=== PATIENT | male | born 1980 | race Caucasian/White ===

== ENCOUNTER 2020-08-01 19:51 | Inpatient (IN) | payer BC ==
[~2020-08-01] VITALS: Ht 193 cm; Wt 102.9 kg
[2020-08-01] MEDS ORDERED: HYDROmorphone 1 MG/ML, 1ML INJ IV ONE (20:30)
[2020-08-01] MEDS ORDERED: DIAZEPAM 5 MG/ML, 2ML IVPush ONE (20:30)
[2020-08-01] MEDS ORDERED: PLEASE ENTER ALLERGIES MC SCH (20:30)
[2020-08-01] MEDS ORDERED: SODIUM CHLORIDE FLUSH 10ML SYR IVF ONE (20:30)
[2020-08-01] MEDS ORDERED: ONDANSETRON 2MG/ML, 2ML IVPush ONE (20:30)
[2020-08-01] MEDS ORDERED: DIAZEPAM 5 MG/ML, 2ML ONE (20:37)
[2020-08-01] MEDS ORDERED: HYDROmorphone 1 MG/ML, 1ML INJ ONE (20:38)
[2020-08-01] MEDS ORDERED: ONDANSETRON 2MG/ML, 2ML ONE (20:38)
--- NOTE | 2020-08-01 20:59 | NUR ---
PATIENT RESTING IN BED PRONE HAVING 10/10 COMPLAINTS OF LBP AND BLE TINGLING/NUMBNESS WITH L LEG TREMORS. IV ESTABLISHED AND MEDICATIONS ORDERED ADMIN. PATIENT EDUCATED ON ALL MEDS PRIOR TO ADMIN. ICE PACKS FROM HOME APPLIED TO BACK BY SISTER AT BEDSIDE. PATIENT ABLE TO STAND INDEPENDENTLY WITH WALKER. VOIDED 350mL CLEAR YELLOW URINE. DENIES HAVING URINARY RETENTION JUST THAT "I CAN START MY STREAM IT JUST BECOMES WEAKER SOONER THAN BEFORE". CALL [facility] IN [facility]. SAFETY MAINTAINED. WILL CONTINUE TO MONITOR. PATIENT EDUCATED THAT AFTER MEDS ADMIN THAT HE WILL HAVE TO STAY IN BED DUE TO THESE MEDS BEING HIGH FALL RISK MEDS. HE VERBALIZES UNDERSTANDING
[2020-08-01 21:12] LABS: BASOPHILS % (AUTO) 1 % (0-1); EOSINOPHILS % (AUTO) 4 % (1-7); LYMPHOCYTES % (AUTO) 32 % (22-44); MEAN CORPUSCULAR HEMOGLOBIN 30.7 pg (27.5-34.5); MEAN CORPUSCULAR HGB CONC 35.6 g/dL (33.2-36.2); MEAN PLATELET VOLUME 7.4 fL (7.4-10.4); MONOCYTES % (AUTO) 7 % (2-9); NEUTROPHILS % (AUTO) 57 % (42-75); PLATELET COUNT 339 x10^3/uL (130-400); RED BLOOD COUNT 4.54 x10^6/uL (4.38-5.82); RED CELL DISTRIBUTION WIDTH 13.4 % (9.4-14.8)
[2020-08-01 21:13] LABS: MD NO
[2020-08-01 21:15] LABS: ALBUMIN 3.8 g/dL (3.4-5.0); ANION GAP 7 mmol/L (5-15); CALCIUM 8.3 mg/dL (8.5-10.1); CHLORIDE 110 mmol/L (98-107); CREATININE 1.05 mg/dL (0.7-1.3)
--- NOTE | 2020-08-01 21:19 | NUR ---
PATIENT REPORTS PAIN IS 3/10. PATIENT CONTINUES TO COMPLAIN OF LEG NUMBNESS. + PALPABLE PEDAL PULSES IN BILATERAL FEET. CALL CARDOSO IN RE[place]. SISTER STEPPED OUT. BOTH SIDE RAILS RAISED AND PATIENT NOTIFIED REASON PATIENT RECEIVED 2 HIGH FALL RISK MEDS. CALL CARDOSO IN RE[place]. SAFETY MAINTAINED
[2020-08-01] MEDS ORDERED: GABA300C PO (21:24)
[2020-08-01] MEDS ORDERED: SODIUM CHLORIDE FLUSH 10ML SYR IVF PRN (21:30)
[2020-08-01] MEDS ORDERED: IBUP-1223 PO (22:05)
[2020-08-01] MEDS ORDERED: METH750T87 PO (22:05)
[2020-08-01] MEDS ORDERED: HYDR1TAB53 PO (22:05)
[2020-08-01] MEDS ORDERED: BISA-49 PO (22:05)
--- NOTE | 2020-08-01 22:10 | NUR ---
PATIENT RESTING IN BED IN NAD. CALL CARDOSO IN RE[place]. SISTER REMAINS AT BEDSIDE. PATIENT NOTIFIES ME THAT HE HAS BEEN TOLD HE WILL BE GOING TO SURGERY TOMORROW FOR DEBRIDEMENT OF HIS LAMINECTOMY SITE. VS REMAIN STABLE ON RA. WILL CONTINUE TO MONITOR.
[2020-08-01] MEDS ORDERED: HYDROmorphone 2 MG/ML, 1ML ONE (22:41)
--- NOTE | 2020-08-01 22:51 | NUR ---
REPORT GIVEN TO NISHANT RN ON 4NE. PATIENT ALSO COMPLAINING OF PAIN STARTING TO INCREASE SINCE LAST PAIN HUMAN RESOURCES BENEFITS COORDINATOR. DR. BASS HAD ALREADY LEFT AND DR. CHAVEZ FELT COMFORTABLE ORDERING ANOTHER DOSE OF DILAUDID FOR PATIENT. PATIENT RATED PAIN 4-5/10 AT THIS TIME SO I GAVE 1MG DILAUDID IV INSTEAD OF FULL 2MG PER RN JUDGMENT. SIDE RAILS UP. CALL CARDOSO IN RE[place]. SAFETY MAINTAINED
[2020-08-01] MEDS ORDERED: HYDROmorphone 2 MG/ML, 1ML IVPush ONE (23:00)
[2020-08-01 23:08] VITALS: BP 125/74
[2020-08-01] MEDS ORDERED: ENALAPRILAT 1.25 MG/ML, 2ML IVPush PRN (23:30)
[2020-08-01] MEDS ORDERED: TEMAZEPAM 15 MG CAPSULE PO PRN (23:30)
[2020-08-01] MEDS: GABAPENTIN 300 MG CAPSULE PO SCH (23:30)
[2020-08-01] MEDS ORDERED: MELATONIN 5 MG TABLET PO PRN (23:30)
[2020-08-01] MEDS ORDERED: LIDODERM 5% PATCH TD PRN (23:30)
[2020-08-01] MEDS ORDERED: DOCUSATE 100 MG CAPSULE PO PRN (23:30)
[2020-08-01] MEDS ORDERED: ONDANSETRON 2MG/ML, 2ML IVPush PRN (23:30)
[2020-08-01] MEDS ORDERED: BISACODYL 5 MG EC TABLET PO PRN (23:30)
[2020-08-01] MEDS: DIAZEPAM 5 MG TABLET PO PRN (23:51)
[2020-08-02] MEDS: HYDROmorphone 2 MG/ML, 1ML IVPush PRN ×5 (00:18→11:59)
[2020-08-02 01:57] VITALS: BP 99/48
[2020-08-02 02:08] VITALS: BP 99/48
[2020-08-02] MEDS: GABAPENTIN 300 MG CAPSULE PO SCH ×3 (04:13→21:15)
[2020-08-02 06:06] LABS: BASOPHILS % (AUTO) 1 % (0-1); EOSINOPHILS % (AUTO) 6 % (1-7); LYMPHOCYTES % (AUTO) 37 % (22-44); MEAN CORPUSCULAR HGB CONC 34.4 g/dL (33.2-36.2); MEAN PLATELET VOLUME 7.7 fL (7.4-10.4); MONOCYTES % (AUTO) 9 % (2-9); NEUTROPHILS % (AUTO) 48 % (42-75); PLATELET COUNT 318 x10^3/uL (130-400); RED BLOOD COUNT 4.42 x10^6/uL (4.38-5.82); RED CELL DISTRIBUTION WIDTH 13.4 % (9.4-14.8)
[2020-08-02 06:14] LABS: MD NO
[2020-08-02 06:25] VITALS: BP 126/87
[2020-08-02] MEDS: ACETAMINOPHEN 325 MG TABLET PO PRN ×2 (07:51→18:32)
[2020-08-02] MEDS: POLYETHYLENE GLYCOL 17 GM PACKET PO SCH (09:00)
[2020-08-02] MEDS ORDERED: CYCLOBENZAPRINE 10 MG TABLET PO PRN ×2 (09:30→18:00)
[2020-08-02] MEDS ORDERED: CHLORHEXIDINE 15 ML UDC ONE (14:10)
[2020-08-02] MEDS ORDERED: MIDAZOLAM 1 MG/ML, 2ML ONE (15:05)
[2020-08-02] MEDS ORDERED: FENTANYL PF 250 MCG/5ML ONE ×2 (15:06→16:13)
[2020-08-02] MEDS ORDERED: FENTANYL PF 100 MCG/2ML IV PRN (15:30)
[2020-08-02] MEDS ORDERED: ACETAMINOPHEN 325 MG TABLET PO PRN (15:30)
[2020-08-02] MEDS ORDERED: LABETALOL 5MG/ML, 20ML IV PRN (15:30)
[2020-08-02] MEDS ORDERED: OXYcodone 5 MG/5 ML ORAL.SOL UDC PO PRN (15:30)
[2020-08-02] MEDS ORDERED: ONDANSETRON 2MG/ML, 2ML IVPush PRN ×2 (15:30→18:00)
[2020-08-02] MEDS ORDERED: hydrALAzine 20 MG/ML, 1ML IV PRN (15:30)
[2020-08-02] MEDS ORDERED: MEPERIDINE/PF 25MG/0.5ML IVPush PRN (15:30)
[2020-08-02] MEDS ORDERED: PROPOFOL 10 MG/ML, 20ML ONE (16:12)
[2020-08-02] MEDS ORDERED: SUCCINYLCHOLINE 20 MG/ML, 10ML ONE (16:12)
[2020-08-02] MEDS ORDERED: ROCURONIUM 10MG/ML,5ML ONE (16:12)
[2020-08-02] MEDS ORDERED: GLYCOPYRROLATE 0.2MG/1ML, 5ML ONE (16:12)
[2020-08-02] MEDS ORDERED: CEFAZOLIN 1,000 MG ONE (16:12)
[2020-08-02] MEDS ORDERED: NEOSTIGMINE 1 MG/ML, 10ML ONE (16:12)
[2020-08-02] MEDS ORDERED: BUPIVACAINE LIPOSOME/PF 10ML INFIL ONE (16:28)
[2020-08-02] MEDS ORDERED: FENTANYL PF 100 MCG/2ML ONE ×2 (16:52→18:15)
[2020-08-02] MEDS ORDERED: FENTANYL PF 100 MCG/2ML EPIDPUSH ONE (16:58)
[2020-08-02] MEDS ORDERED: BUPIVACAINE/PF 0.25% EPIDPUSH ONE (17:01)
[2020-08-02] MEDS ORDERED: BUPIVACAINE LIPOSOME/PF 20ML INFIL ONE (17:02)
[2020-08-02] MEDS ORDERED: BUPIVACAINE/PF-EPI 0.25% 1:200K INFIL ONE (17:06)
[2020-08-02] MEDS ORDERED: DEXAMETHASONE 4 MG/ML, 1ML ONE ×3 (17:15)
[2020-08-02] MEDS ORDERED: VANCOMYCIN 1,000 MG IM ONE (17:22)
[2020-08-02] MEDS ORDERED: METHOCARBAMOL 750 MG TABLET PO PRN (18:00)
[2020-08-02] MEDS ORDERED: DIPHENHYDRAMINE 50 MG/ML, 1ML IVPush PRN (18:00)
[2020-08-02] MEDS ORDERED: HYDROcodone/APAP 5/325 TABLET PO PRN (18:00)
[2020-08-02] MEDS ORDERED: BISACODYL 10 MG SUPP PR PRN (18:00)
[2020-08-02] MEDS ORDERED: MAGNESIUM HYDROXIDE 8%, 30ML UDC PO PRN (18:00)
[2020-08-02] MEDS ORDERED: morphine SULFATE 10 MG/ML, 1ML IVPush PRN (18:00)
[2020-08-02] MEDS ORDERED: HYDROcodone/APAP 10/325 MG TABLET PO PRN (18:00)
[2020-08-02] MEDS ORDERED: PROMETHAZINE 25 MG/ML, 1ML IM PRN (18:00)
[2020-08-02] MEDS ORDERED: SENNA/DOCUSATE TABLET PO PRN (18:00)
[2020-08-02] MEDS ORDERED: CEFAZOLIN PMX 1GM/50ML 50 ML IVPB SCH (18:00)
[2020-08-02] MEDS ORDERED: PHARMACY MAY ADJ FOR RENAL FX MC PRN (18:00)
[2020-08-02] MEDS ORDERED: OXYcodone 5 MG/5 ML ORAL.SOL UDC ONE (18:15)
[2020-08-02] MEDS ORDERED: ACETAMINOPHEN 650 MG/20.3 ML UDC ONE (18:16)
[2020-08-02] MEDS: HYDROmorphone 1 MG/ML, 1ML INJ IVPush PRN ×2 (18:18→18:53)
[2020-08-02] MEDS ORDERED: HYDROmorphone 1 MG/ML, 1ML INJ ONE (18:21)
[2020-08-02] MEDS ORDERED: CYCLOBENZAPRINE 10 MG TABLET ONE (18:37)
[2020-08-02] MEDS ORDERED: DIAZEPAM 5 MG TABLET ONE (19:12)
[2020-08-02] MEDS: DIAZEPAM 5 MG TABLET PO PRN (19:13)
[2020-08-02 19:41] VITALS: BP 134/83
[2020-08-02] MEDS: SODIUM CHLORIDE FLUSH 10ML SYR IVF SCH (21:00)
[2020-08-02] MEDS: NS + 20MEQ KCL 1,000 ML IV SCH (21:15)
[2020-08-02] MEDS: OXYcodone/APAP 5/325MG TABLET PO PRN (22:26)
[2020-08-03] MEDS: CEFAZOLIN PMX 1GM/50ML 50 ML IVPB SCH ×2 (00:27→08:38)
[2020-08-03] MEDS: DIAZEPAM 5 MG TABLET PO PRN (00:30)
[2020-08-03] MEDS: OXYcodone/APAP 5/325MG TABLET PO PRN ×3 (02:58→12:43)
[2020-08-03 04:02] VITALS: BP 114/64
[2020-08-03 05:06] LABS: BASOPHILS % (AUTO) 0 % (0-1); EOSINOPHILS % (AUTO) 0 % (1-7); LYMPHOCYTES % (AUTO) 7 % (22-44); MEAN CORPUSCULAR HEMOGLOBIN 30.2 pg (27.5-34.5); MEAN CORPUSCULAR HGB CONC 34.4 g/dL (33.2-36.2); MEAN PLATELET VOLUME 7.5 fL (7.4-10.4); MONOCYTES % (AUTO) 2 % (2-9); NEUTROPHILS % (AUTO) 91 % (42-75); PLATELET COUNT 350 x10^3/uL (130-400); RED BLOOD COUNT 4.67 x10^6/uL (4.38-5.82); RED CELL DISTRIBUTION WIDTH 12.9 % (9.4-14.8)
[2020-08-03 05:09] LABS: MD NO
[2020-08-03 05:13] LABS: ALANINE AMINOTRANSFERASE 48 U/L (12-78); ALBUMIN 3.6 g/dL (3.4-5.0); ANION GAP 7 mmol/L (5-15); CALCIUM 8.2 mg/dL (8.5-10.1); CHLORIDE 106 mmol/L (98-107); CREATININE 1.06 mg/dL (0.7-1.3)
[2020-08-03 05:14] LABS: ALKALINE PHOSPHATASE 68 U/L (45-117); BILIRUBIN,TOTAL 0.5 mg/dL (0.2-1.0); TOTAL PROTEIN 7.1 g/dL (6.4-8.2)
[2020-08-03] MEDS ORDERED: ENOXAPARIN 40 MG/0.4 ML SQ SCH (06:00)
[2020-08-03 06:30] VITALS: BP 110/73
[2020-08-03] MEDS: POLYETHYLENE GLYCOL 17 GM PACKET PO SCH (08:38)
[2020-08-03] MEDS: GABAPENTIN 300 MG CAPSULE PO SCH (08:39)
[2020-08-03] MEDS: SODIUM CHLORIDE FLUSH 10ML SYR IVF SCH (08:42)
[2020-08-03 12:26] VITALS: BP 141/84
[2020-08-03] MEDS: NS + 20MEQ KCL 1,000 ML IV SCH (15:00)
== END 2020-08-03 15:49 | disposition home or self-care (01) | DRG 520 ==
LOC: ED 21:12 → EDIP 21:26 → 4NE 23:02 → DCLOUNGE 08-03 15:42
PROVIDERS: ADMIT Internal Medicine; ATTEND Hospitalist
PROC: 00NY0ZZ Release Lumbar Spinal Cord, Open Approach (ICD-10-PCS; principal; 2020-08-03)
PROC: 01NB0ZZ Release Lumbar Nerve, Open Approach (ICD-10-PCS; 2020-08-03)
PROC: 0SB20ZZ Excision of Lumbar Vertebral Disc, Open Approach (ICD-10-PCS; 2020-08-03)
PROC: 0SB40ZZ Excision of Lumbosacral Disc, Open Approach (ICD-10-PCS; 2020-08-03)
PROC: 4A11X4G Monitoring of Peripheral Nervous Electrical Activity, Intraoperative, External Approach (ICD-10-PCS; 2020-08-03)
DX: M51.17 Intervertebral disc disorders with radiculopathy, lumbosacral region (principal); Z20.822 Contact with and (suspected) exposure to COVID-19; G89.29 Other chronic pain; K59.00 Constipation, unspecified; M48.061 Spinal stenosis, lumbar region without neurogenic claudication; Z79.899 Other long term (current) drug therapy; Z82.49 Family history of ischemic heart disease and other diseases of the circulatory system; Z83.3 Family history of diabetes mellitus; Z88.5 Allergy status to narcotic agent
CPT/HCPCS: 36415; 72100; 80048; 80053; 82040; 85025; 87635; 95938; 95941; 96374; 96375; 96376; 99285; C9290; G0378; J0690; J1100; J1170; J1650; J2250; J2405; J2704; J2710; J3010; J3360; J3370; J3480; J0330

== ENCOUNTER → 2020-11-04 | Outpatient (CLI) | payer OTHER ==
[~2020-11-04] MED LIST: BISA-49 PO; CYCL10TA2 PO; DOCU100T6 PO; EPLE25TA4 PO; GABA300C PO; HYDR1TAB53 PO; IBUP-1223 PO; LISI-170 PO; METH750T87 PO; PROP10DR2 EACHEYE
== END | disposition home or self-care (01) ==
LOC: STAR 14:05
PROVIDERS: ATTEND Neurological Surgery
DX: Z20.822 Contact with and (suspected) exposure to COVID-19 (principal)
CPT/HCPCS: U0003; U0005

== ENCOUNTER 2020-11-05 07:06 | Inpatient (IN) | payer OTHER ==
[~2020-11-05] VITALS: Ht 191.8 cm; Wt 125.0 kg
[~2020-11-05 07:06] MED LIST changes: +BACITRACIN 50,000 UNIT ONE; +HEPARIN 1,000 UNITS/ML, 30ML ONE
[2020-11-05 07:51] VITALS: BP 162/76
[2020-11-05] MEDS ORDERED: CHLORHEXIDINE 15 ML UDC ONE (08:40)
[2020-11-05] MEDS ORDERED: CHLORHEXIDINE 15 ML UDC PO ONE (08:40)
[2020-11-05] MEDS ORDERED: FENTANYL PF 250 MCG/5ML ONE (08:42)
[2020-11-05] MEDS ORDERED: MIDAZOLAM 1 MG/ML, 2ML ONE (08:42)
[2020-11-05] MEDS ORDERED: PROPOFOL 50 ML ONE ×2 (08:42→10:37)
[2020-11-05] MEDS ORDERED: LACTATED RINGERS 1,000 ML IV SCH (09:00)
[2020-11-05] MEDS ORDERED: LORazepam 2 MG/ML, 1ML IVPush PRN (09:30)
[2020-11-05] MEDS ORDERED: METHOCARBAMOL 1,000 MG in DEXTROSE 5% 100 ML IV PRN (09:30)
[2020-11-05] MEDS ORDERED: PROMETHAZINE 25 MG/ML, 1ML IVPush PRN (09:30)
[2020-11-05] MEDS ORDERED: OXYcodone 5 MG/5 ML ORAL.SOL UDC PO PRN (09:30)
[2020-11-05] MEDS ORDERED: MEPERIDINE/PF 25MG/0.5ML IVPush PRN (09:30)
[2020-11-05] MEDS ORDERED: ACETAMINOPHEN 325 MG TABLET PO PRN (09:30)
[2020-11-05] MEDS ORDERED: LABETALOL 5MG/ML, 20ML IV PRN ×2 (09:30→15:00)
[2020-11-05] MEDS ORDERED: HEPARIN 1,000 UNITS/ML, 30ML IVPB ONE (10:25)
[2020-11-05] MEDS ORDERED: NEOSTIGMINE 1 MG/ML, 10ML ONE (10:39)
[2020-11-05] MEDS ORDERED: PROPOFOL 10 MG/ML, 20ML ONE (10:39)
[2020-11-05] MEDS ORDERED: ONDANSETRON 2MG/ML, 2ML ONE (10:39)
[2020-11-05] MEDS ORDERED: LIDOCAINE-MPF 2% ,5ML ONE ×2 (10:39→13:35)
[2020-11-05] MEDS ORDERED: DEXAMETHASONE 4 MG/ML, 1ML ONE (10:39)
[2020-11-05] MEDS ORDERED: GLYCOPYRROLATE 0.2MG/1ML, 5ML ONE (10:39)
[2020-11-05] MEDS ORDERED: CEFAZOLIN 1,000 MG ONE (10:39)
[2020-11-05] MEDS ORDERED: ROCURONIUM 10MG/ML,5ML ONE (10:39)
[2020-11-05] MEDS ORDERED: HYDROmorphone 1 MG/ML, 1ML INJ ONE ×2 (11:10→11:58)
[2020-11-05] MEDS ORDERED: ACETAMINOPHEN 650 MG/20.3 ML UDC ONE (11:38)
[2020-11-05] MEDS ORDERED: FENTANYL PF 100 MCG/2ML ONE ×2 (11:39→12:20)
[2020-11-05] MEDS ORDERED: OXYcodone 5 MG/5 ML ORAL.SOL UDC ONE (11:39)
[2020-11-05] MEDS ORDERED: PROMETHAZINE 25 MG/ML, 1ML ONE (11:41)
[2020-11-05] MEDS: FENTANYL PF 100 MCG/2ML IV PRN ×3 (11:45→12:24)
[2020-11-05] MEDS: HYDROmorphone 1 MG/ML, 1ML INJ IVPush PRN ×2 (12:01→12:15)
[2020-11-05] MEDS ORDERED: DIPHENHYDRAMINE 50 MG/ML, 1ML ONE (12:29)
[2020-11-05] MEDS: DIPHENHYDRAMINE 50 MG/ML, 1ML IVPush PRN (12:35)
[2020-11-05 14:15] VITALS: BP 135/85
[2020-11-05] MEDS ORDERED: METHOCARBAMOL 750 MG TABLET PO PRN (15:00)
[2020-11-05] MEDS ORDERED: DIPHENHYDRAMINE 50 MG/ML, 1ML IM PRN (15:00)
[2020-11-05] MEDS ORDERED: ONDANSETRON 2MG/ML, 2ML IV PRN (15:00)
[2020-11-05] MEDS ORDERED: ARTIFICIAL TEARS 15 DROP/ML BOTTLE EACHEYE PRN (15:00)
[2020-11-05] MEDS ORDERED: PROMETHAZINE 25 MG/ML, 1ML IM PRN (15:00)
[2020-11-05] MEDS ORDERED: DIPHENHYDRAMINE 25 MG CAPSULE PO PRN (15:00)
[2020-11-05] MEDS: GABAPENTIN 300 MG CAPSULE PO SCH ×2 (16:22→21:11)
[2020-11-05] MEDS: OXYcodone IR 5MG TABLET PO PRN ×2 (16:22→21:11)
[2020-11-05] MEDS: CEFAZOLIN PMX 1GM/50ML 50 ML IVPB SCH (17:47)
[2020-11-05] MEDS ORDERED: CYCLOBENZAPRINE 10 MG TABLET PO PRN (18:00)
[2020-11-05 19:54] VITALS: BP 163/110
[2020-11-05] MEDS: D5%-0.9% NACL+KCL 20MEQ 1,000 ML IV SCH (21:00)
[2020-11-06] VITALS (7 sets, daily range): BP systolic 104–153; BP diastolic 61–92
[2020-11-06] MEDS: CEFAZOLIN PMX 1GM/50ML 50 ML IVPB SCH (02:15)
[2020-11-06] MEDS: OXYcodone IR 5MG TABLET PO PRN ×5 (02:20→15:47)
[2020-11-06] MEDS: ENOXAPARIN 40 MG/0.4 ML SQ SCH (05:27)
[2020-11-06 05:41] LABS: ANION GAP 5 mmol/L (5-15); CALCIUM 8.4 mg/dL (8.5-10.1); CHLORIDE 104 mmol/L (98-107); CREATININE 0.94 mg/dL (0.7-1.3)
[2020-11-06 05:49] LABS: BASOPHILS % (AUTO) 0 % (0-1); EOSINOPHILS % (AUTO) 0 % (1-7); LYMPHOCYTES % (AUTO) 19 % (22-44); MEAN CORPUSCULAR HEMOGLOBIN 29.8 pg (27.5-34.5); MEAN CORPUSCULAR HGB CONC 33.9 g/dL (33.2-36.2); MEAN PLATELET VOLUME 7.3 fL (7.4-10.4); MONOCYTES % (AUTO) 8 % (2-9); NEUTROPHILS % (AUTO) 72 % (42-75); PLATELET COUNT 311 x10^3/uL (130-400); RED BLOOD COUNT 4.75 x10^6/uL (4.38-5.82); RED CELL DISTRIBUTION WIDTH 13.1 % (9.4-14.8)
[2020-11-06] MEDS: D5%-0.9% NACL+KCL 20MEQ 1,000 ML IV SCH ×3 (06:38→21:04)
[2020-11-06] MEDS: GABAPENTIN 300 MG CAPSULE PO SCH ×3 (08:32→20:43)
[2020-11-06] MEDS: LISINOPRIL 20 MG TABLET PO SCH (08:32)
[2020-11-06] MEDS: SENNA/DOCUSATE TABLET PO SCH (08:33)
[2020-11-06] MEDS: EPLERENONE 50 MG TABLET PO SCH (09:37)
[2020-11-06] MEDS: METHOCARBAMOL 750 MG TABLET PO PRN (12:05)
[2020-11-06] MEDS ORDERED: KETOROLAC 30 MG/1 ML IVPush ONE (18:00)
[2020-11-06] MEDS ORDERED: CYCLOBENZAPRINE 10 MG TABLET PO PRN (20:50)
[2020-11-07 01:30] VITALS: BP 112/69
[2020-11-07] MEDS: METHOCARBAMOL 750 MG TABLET PO PRN ×2 (05:05→16:13)
[2020-11-07] MEDS: OXYcodone IR 5MG TABLET PO PRN ×5 (05:05→19:45)
[2020-11-07] MEDS: ENOXAPARIN 40 MG/0.4 ML SQ SCH (05:06)
[2020-11-07 05:40] LABS: BASOPHILS % (AUTO) 0 % (0-1); EOSINOPHILS % (AUTO) 1 % (1-7); LYMPHOCYTES % (AUTO) 27 % (22-44); MEAN CORPUSCULAR HEMOGLOBIN 30.7 pg (27.5-34.5); MEAN CORPUSCULAR HGB CONC 35.2 g/dL (33.2-36.2); MEAN PLATELET VOLUME 7.2 fL (7.4-10.4); MONOCYTES % (AUTO) 9 % (2-9); NEUTROPHILS % (AUTO) 62 % (42-75); PLATELET COUNT 263 x10^3/uL (130-400); RED BLOOD COUNT 4.52 x10^6/uL (4.38-5.82); RED CELL DISTRIBUTION WIDTH 13.1 % (9.4-14.8)
[2020-11-07 05:57] LABS: ANION GAP 4 mmol/L (5-15); CALCIUM 8.1 mg/dL (8.5-10.1); CHLORIDE 104 mmol/L (98-107); CREATININE 0.92 mg/dL (0.7-1.3)
[2020-11-07 08:21] VITALS: BP 125/82
[2020-11-07] MEDS: LISINOPRIL 20 MG TABLET PO SCH (09:40)
[2020-11-07] MEDS: GABAPENTIN 300 MG CAPSULE PO SCH ×3 (09:40→19:45)
[2020-11-07] MEDS: EPLERENONE 50 MG TABLET PO SCH (09:40)
[2020-11-07] MEDS: SENNA/DOCUSATE TABLET PO SCH (09:40)
[2020-11-07] MEDS: D5%-0.9% NACL+KCL 20MEQ 1,000 ML IV SCH (13:00)
[2020-11-07 13:35] VITALS: BP 118/64
[2020-11-07 19:13] VITALS: BP 146/85
[2020-11-07] MEDS: CYCLOBENZAPRINE 10 MG TABLET PO PRN (19:45)
[2020-11-07] MEDS: MAGNESIUM HYDROXIDE 8%, 30ML UDC PO PRN (19:45)
[2020-11-08] MEDS: OXYcodone IR 5MG TABLET PO PRN ×6 (00:08→22:44)
[2020-11-08] MEDS: D5%-0.9% NACL+KCL 20MEQ 1,000 ML IV SCH ×3 (00:08→16:02)
[2020-11-08 02:44] VITALS: BP 145/80
[2020-11-08 05:40] LABS: BASOPHILS % (AUTO) 1 % (0-1); EOSINOPHILS % (AUTO) 1 % (1-7); LYMPHOCYTES % (AUTO) 31 % (22-44); MEAN CORPUSCULAR HEMOGLOBIN 30.5 pg (27.5-34.5); MEAN CORPUSCULAR HGB CONC 34.7 g/dL (33.2-36.2); MEAN PLATELET VOLUME 7.1 fL (7.4-10.4); MONOCYTES % (AUTO) 10 % (2-9); NEUTROPHILS % (AUTO) 58 % (42-75); PLATELET COUNT 330 x10^3/uL (130-400); RED BLOOD COUNT 4.77 x10^6/uL (4.38-5.82)
[2020-11-08 05:47] LABS: CHLORIDE 104 mmol/L (98-107)
[2020-11-08 05:48] LABS: ANION GAP 4 mmol/L (5-15); CALCIUM 8.5 mg/dL (8.5-10.1)
[2020-11-08 05:50] LABS: CREATININE 1.06 mg/dL (0.7-1.3)
[2020-11-08] MEDS ORDERED: BUPIVACAINE/PF 0.5% ONE (06:16)
[2020-11-08] MEDS ORDERED: BACITRACIN 50,000 UNIT ONE (06:16)
[2020-11-08] MEDS: METHOCARBAMOL 750 MG TABLET PO PRN (06:46)
[2020-11-08 07:19] VITALS: BP 137/79
[2020-11-08] MEDS ORDERED: FENTANYL PF 250 MCG/5ML ONE (08:06)
[2020-11-08] MEDS ORDERED: MIDAZOLAM 1 MG/ML, 2ML ONE (08:06)
[2020-11-08] MEDS ORDERED: ROCURONIUM 10MG/ML,5ML ONE (08:08)
[2020-11-08] MEDS ORDERED: PROPOFOL 100 ML ONE (08:08)
[2020-11-08] MEDS ORDERED: NEOSTIGMINE 1 MG/ML, 10ML ONE (08:08)
[2020-11-08] MEDS ORDERED: GLYCOPYRROLATE 0.2MG/1ML, 5ML ONE (08:08)
[2020-11-08] MEDS ORDERED: CHLORHEXIDINE 15 ML UDC ONE (08:08)
[2020-11-08] MEDS ORDERED: PROPOFOL 10 MG/ML, 20ML ONE (08:08)
[2020-11-08] MEDS ORDERED: CEFAZOLIN 1,000 MG ONE (08:08)
[2020-11-08] MEDS ORDERED: CHLORHEXIDINE 15 ML UDC PO ONE (08:30)
[2020-11-08] MEDS: GABAPENTIN 300 MG CAPSULE PO SCH ×3 (09:00→22:42)
[2020-11-08] MEDS ORDERED: LABETALOL 5MG/ML, 20ML IV PRN (09:30)
[2020-11-08] MEDS ORDERED: METHOCARBAMOL 1,000 MG in DEXTROSE 5% 100 ML IV PRN ×2 (09:30→10:30)
[2020-11-08] MEDS ORDERED: ONDANSETRON 2MG/ML, 2ML IVPush PRN (09:30)
[2020-11-08] MEDS ORDERED: ACETAMINOPHEN 325 MG TABLET PO PRN (09:30)
[2020-11-08] MEDS ORDERED: hydrALAzine 20 MG/ML, 1ML IV PRN (09:30)
[2020-11-08] MEDS ORDERED: MEPERIDINE/PF 25MG/0.5ML IVPush PRN (09:30)
[2020-11-08] MEDS ORDERED: HYDROmorphone 1 MG/ML, 1ML INJ IVPush PRN (09:30)
[2020-11-08] MEDS ORDERED: KETOROLAC 30 MG/1 ML ONE (11:16)
[2020-11-08] MEDS ORDERED: FENTANYL PF 100 MCG/2ML ONE ×2 (11:39→12:21)
[2020-11-08] MEDS: FENTANYL PF 100 MCG/2ML IV PRN ×6 (11:41→12:35)
[2020-11-08] MEDS ORDERED: OXYcodone 5 MG/5 ML ORAL.SOL UDC PO PRN (12:00)
[2020-11-08] MEDS ORDERED: CEFAZOLIN 1,000 MG IM SCH (12:00)
[2020-11-08] MEDS ORDERED: DIPHENHYDRAMINE 50 MG/ML, 1ML IVPush PRN (12:00)
[2020-11-08] MEDS ORDERED: OXYcodone 5 MG/5 ML ORAL.SOL UDC ONE (12:01)
[2020-11-08] MEDS ORDERED: DIPHENHYDRAMINE 50 MG/ML, 1ML ONE (12:01)
[2020-11-08] MEDS: DIPHENHYDRAMINE 50 MG/ML, 1ML IVPush PRN (12:04)
[2020-11-08 13:10] VITALS: BP 130/73
[2020-11-08] MEDS ORDERED: DIPHENHYDRAMINE 25 MG CAPSULE PO PRN (13:27)
[2020-11-08] MEDS ORDERED: ONDANSETRON 2MG/ML, 2ML IV PRN (13:30)
[2020-11-08] MEDS ORDERED: PROMETHAZINE 25 MG/ML, 1ML IM PRN (13:30)
[2020-11-08] MEDS ORDERED: POLYETHYLENE GLYCOL 17 GM PACKET PO PRN (14:00)
[2020-11-08] MEDS: CEFAZOLIN PMX 1GM/50ML 50 ML IV SCH (16:02)
[2020-11-08] MEDS: CYCLOBENZAPRINE 10 MG TABLET PO PRN (16:11)
[2020-11-08] MEDS: LISINOPRIL 20 MG TABLET PO SCH (16:11)
[2020-11-08] MEDS: EPLERENONE 50 MG TABLET PO SCH (16:11)
[2020-11-08] MEDS: SENNA/DOCUSATE TABLET PO SCH (16:11)
[2020-11-08 20:00] VITALS: BP 116/72
[2020-11-08] MEDS: FAMOTIDINE 20 MG TABLET PO SCH (22:42)
[2020-11-09] VITALS: BP 125/71
[2020-11-09] MEDS: CEFAZOLIN PMX 1GM/50ML 50 ML IV SCH ×2 (00:28→08:30)
[2020-11-09] MEDS: CYCLOBENZAPRINE 10 MG TABLET PO PRN ×3 (00:28→16:36)
[2020-11-09] MEDS: D5%-0.9% NACL+KCL 20MEQ 1,000 ML IV SCH ×2 (03:05→14:53)
[2020-11-09] MEDS: OXYcodone IR 5MG TABLET PO PRN ×7 (03:07→21:15)
[2020-11-09 04:17] VITALS: BP 116/72
[2020-11-09 06:07] LABS: ANION GAP 3 mmol/L (5-15); BASOPHILS % (AUTO) 1 % (0-1); CALCIUM 7.8 mg/dL (8.5-10.1); CHLORIDE 105 mmol/L (98-107); EOSINOPHILS % (AUTO) 2 % (1-7); LYMPHOCYTES % (AUTO) 22 % (22-44); MEAN CORPUSCULAR HEMOGLOBIN 30.7 pg (27.5-34.5); MEAN PLATELET VOLUME 7.1 fL (7.4-10.4); MONOCYTES % (AUTO) 7 % (2-9); NEUTROPHILS % (AUTO) 68 % (42-75); PLATELET COUNT 281 x10^3/uL (130-400); RED BLOOD COUNT 4.22 x10^6/uL (4.38-5.82); RED CELL DISTRIBUTION WIDTH 13.1 % (9.4-14.8)
[2020-11-09 06:08] LABS: CREATININE 0.84 mg/dL (0.7-1.3)
[2020-11-09 07:45] VITALS: BP 121/75
[2020-11-09] MEDS ORDERED: ENOXAPARIN 40 MG/0.4 ML SQ ONE (09:00)
[2020-11-09] MEDS: POLYETHYLENE GLYCOL 17 GM PACKET PO SCH (09:07)
[2020-11-09] MEDS: EPLERENONE 50 MG TABLET PO SCH (09:08)
[2020-11-09] MEDS: GABAPENTIN 300 MG CAPSULE PO SCH (09:08)
[2020-11-09] MEDS: FAMOTIDINE 20 MG TABLET PO SCH ×2 (09:09→21:12)
[2020-11-09] MEDS: LISINOPRIL 20 MG TABLET PO SCH (09:09)
[2020-11-09] MEDS: SENNA/DOCUSATE TABLET PO SCH (09:09)
[2020-11-09] MEDS: DIAZEPAM 2 MG TABLET PO PRN (09:09)
[2020-11-09] MEDS: HYDROmorphone 2 MG/ML, 1ML IVPush PRN (10:43)
[2020-11-09] MEDS: METHOCARBAMOL 750 MG TABLET PO PRN ×2 (12:06→21:12)
[2020-11-09] MEDS: LIDOCAINE JELLY 2%, 30GM TP PRN ×2 (12:20→18:09)
[2020-11-09 13:10] VITALS: BP 122/74
[2020-11-09] MEDS ORDERED: LIDOCAINE JELLY 2%, 30GM TP SCH (16:00)
[2020-11-09] MEDS: GABAPENTIN 400 MG CAPSULE PO SCH ×2 (16:36→21:11)
[2020-11-09 20:33] VITALS: BP 135/84
[2020-11-10] MEDS: OXYcodone IR 5MG TABLET PO PRN ×3 (00:21→07:39)
[2020-11-10] MEDS: CYCLOBENZAPRINE 10 MG TABLET PO PRN ×2 (00:21→21:54)
[2020-11-10] MEDS: LIDOCAINE JELLY 2%, 30GM TP PRN ×3 (00:21→22:18)
[2020-11-10 01:18] VITALS: BP 122/87
[2020-11-10] MEDS: DIAZEPAM 2 MG TABLET PO PRN (04:05)
[2020-11-10] MEDS: D5%-0.9% NACL+KCL 20MEQ 1,000 ML IV SCH ×2 (04:05→12:19)
[2020-11-10 05:35] LABS: BASOPHILS % (AUTO) 1 % (0-1); EOSINOPHILS % (AUTO) 2 % (1-7); LYMPHOCYTES % (AUTO) 17 % (22-44); MEAN CORPUSCULAR HEMOGLOBIN 30.5 pg (27.5-34.5); MEAN CORPUSCULAR HGB CONC 34.8 g/dL (33.2-36.2); MONOCYTES % (AUTO) 10 % (2-9); NEUTROPHILS % (AUTO) 71 % (42-75); PLATELET COUNT 345 x10^3/uL (130-400); RED BLOOD COUNT 4.55 x10^6/uL (4.38-5.82)
[2020-11-10 05:44] LABS: ANION GAP 5 mmol/L (5-15); CALCIUM 8.9 mg/dL (8.5-10.1); CHLORIDE 100 mmol/L (98-107)
[2020-11-10 05:46] LABS: CREATININE 0.96 mg/dL (0.7-1.3)
[2020-11-10] MEDS ORDERED: BUPIVACAINE 0.25% ONE (06:16)
[2020-11-10] MEDS ORDERED: BACITRACIN 50,000 UNIT ONE (06:16)
[2020-11-10] MEDS ORDERED: EPINEPHRINE 1 MG/ML, 1ML ONE (06:16)
[2020-11-10] MEDS ORDERED: BUPIVACAINE/PF 0.5% ONE (06:16)
[2020-11-10 06:48] VITALS: BP 131/87
[2020-11-10] MEDS ORDERED: KETOROLAC 30 MG/1 ML IV ONE (08:30)
[2020-11-10] MEDS: SENNA/DOCUSATE TABLET PO SCH (08:46)
[2020-11-10] MEDS: EPLERENONE 50 MG TABLET PO SCH (08:46)
[2020-11-10] MEDS: POLYETHYLENE GLYCOL 17 GM PACKET PO SCH (08:46)
[2020-11-10] MEDS: FAMOTIDINE 20 MG TABLET PO SCH ×2 (08:47→21:54)
[2020-11-10] MEDS: LISINOPRIL 20 MG TABLET PO SCH (08:47)
[2020-11-10] MEDS: GABAPENTIN 400 MG CAPSULE PO SCH ×3 (08:47→21:55)
[2020-11-10] MEDS: HYDROmorphone 2 MG/ML, 1ML IVPush PRN ×4 (10:25→21:56)
[2020-11-10 12:26] VITALS: BP 126/82
[2020-11-10] MEDS ORDERED: VANCOMYCIN 1,000 MG ONE (12:53)
[2020-11-10] MEDS ORDERED: CHLORHEXIDINE 15 ML UDC ONE (13:47)
[2020-11-10] MEDS: MAGNESIUM HYDROXIDE 8%, 30ML UDC PO PRN (16:00)
[2020-11-10 20:02] VITALS: BP 112/71
[2020-11-11] MEDS: HYDROmorphone 2 MG/ML, 1ML IVPush PRN ×5 (01:17→13:09)
[2020-11-11 01:24] VITALS: BP 143/86
[2020-11-11 05:22] LABS: BASOPHILS % (AUTO) 1 % (0-1); EOSINOPHILS % (AUTO) 4 % (1-7); LYMPHOCYTES % (AUTO) 21 % (22-44); MEAN CORPUSCULAR HEMOGLOBIN 30.3 pg (27.5-34.5); MEAN CORPUSCULAR HGB CONC 35.1 g/dL (33.2-36.2); MEAN PLATELET VOLUME 6.9 fL (7.4-10.4); MONOCYTES % (AUTO) 12 % (2-9); NEUTROPHILS % (AUTO) 63 % (42-75); PLATELET COUNT 321 x10^3/uL (130-400); RED BLOOD COUNT 4.31 x10^6/uL (4.38-5.82); RED CELL DISTRIBUTION WIDTH 13.1 % (9.4-14.8)
[2020-11-11 05:30] LABS: ANION GAP 5 mmol/L (5-15); CHLORIDE 103 mmol/L (98-107); CREATININE 0.75 mg/dL (0.7-1.3)
[2020-11-11 06:22] VITALS: BP 120/77
[2020-11-11] MEDS: D5%-0.9% NACL+KCL 20MEQ 1,000 ML IV SCH (06:48)
[2020-11-11] MEDS: BISACODYL 10 MG SUPP PR PRN ×2 (07:31→07:47)
[2020-11-11] MEDS: SENNA/DOCUSATE TABLET PO SCH (07:47)
[2020-11-11] MEDS: POLYETHYLENE GLYCOL 17 GM PACKET PO SCH (07:47)
[2020-11-11] MEDS: FAMOTIDINE 20 MG TABLET PO SCH ×2 (08:52→21:21)
[2020-11-11] MEDS: LISINOPRIL 20 MG TABLET PO SCH (08:52)
[2020-11-11] MEDS: GABAPENTIN 400 MG CAPSULE PO SCH ×3 (08:52→21:21)
[2020-11-11] MEDS: EPLERENONE 50 MG TABLET PO SCH (08:52)
[2020-11-11] MEDS ORDERED: EPINEPHRINE 1 MG/ML, 1ML ONE (11:23)
[2020-11-11] MEDS ORDERED: BUPIVACAINE/PF 0.5% ONE (11:23)
[2020-11-11] MEDS ORDERED: BACITRACIN 50,000 UNIT ONE (11:23)
[2020-11-11] MEDS ORDERED: BUPIVACAINE 0.25% ONE (11:23)
[2020-11-11] MEDS ORDERED: VANCOMYCIN 1,000 MG ONE (11:37)
[2020-11-11] MEDS ORDERED: KETAMINE 50 MG/ML, 10ML ONE (12:28)
[2020-11-11] MEDS ORDERED: FENTANYL PF 250 MCG/5ML ONE (12:30)
[2020-11-11] MEDS ORDERED: MIDAZOLAM 1 MG/ML, 2ML ONE (12:30)
[2020-11-11] MEDS ORDERED: PROPOFOL 150 ML ONE (12:33)
[2020-11-11 12:35] VITALS: BP 127/81
[2020-11-11] MEDS ORDERED: CHLORHEXIDINE 15 ML UDC ONE (14:12)
[2020-11-11] MEDS ORDERED: CHLORHEXIDINE 15 ML UDC PO ONE (14:30)
[2020-11-11] MEDS ORDERED: PHENYLEPHRINE 10 MG/ML ONE (16:10)
[2020-11-11] MEDS ORDERED: ONDANSETRON 2MG/ML, 2ML ONE (16:10)
[2020-11-11] MEDS ORDERED: BUPIVACAINE/EPI 0.5% 1:200K INFIL ONE (16:53)
[2020-11-11] MEDS ORDERED: BACITRACIN 50,000 UNIT IRRIG ONE (16:54)
[2020-11-11] MEDS ORDERED: VANCOMYCIN 1,000 MG IM ONE (16:55)
[2020-11-11] MEDS ORDERED: EPHEDRINE 50 MG/ML, 1ML IVPush PRN (18:00)
[2020-11-11] MEDS ORDERED: MEPERIDINE/PF 25MG/0.5ML IVPush PRN (18:00)
[2020-11-11] MEDS ORDERED: ONDANSETRON 2MG/ML, 2ML IVPush PRN ×2 (18:00)
[2020-11-11] MEDS ORDERED: DIPHENHYDRAMINE 50 MG/ML, 1ML IM PRN (18:00)
[2020-11-11] MEDS ORDERED: PHARMACY MAY ADJ FOR RENAL FX MC PRN (18:00)
[2020-11-11] MEDS ORDERED: LABETALOL 5MG/ML, 20ML IVPush PRN (18:00)
[2020-11-11] MEDS ORDERED: hydrALAzine 20 MG/ML, 1ML IV PRN (18:00)
[2020-11-11] MEDS ORDERED: SENNA/DOCUSATE TABLET PO PRN (18:00)
[2020-11-11] MEDS ORDERED: LABETALOL 5MG/ML, 20ML IV PRN (18:00)
[2020-11-11] MEDS ORDERED: DIPHENHYDRAMINE 50 MG CAPSULE PO PRN (18:00)
[2020-11-11] MEDS ORDERED: ALBUTEROL SULFATE 2.5 MG/3 ML NPPB PRN (18:00)
[2020-11-11] MEDS ORDERED: PROPYLENE GLYCOL EACHEYE PRN (18:00)
[2020-11-11] MEDS ORDERED: BISACODYL 10 MG SUPP PR PRN (18:00)
[2020-11-11] MEDS ORDERED: PEG EACHEYE PRN (18:00)
[2020-11-11] MEDS ORDERED: OXYcodone 5 MG/5 ML ORAL.SOL UDC PO PRN (18:00)
[2020-11-11] MEDS ORDERED: MAGNESIUM HYDROXIDE 8%, 30ML UDC PO PRN (18:00)
[2020-11-11] MEDS ORDERED: DIAZEPAM 5 MG/ML, 2ML IVPush PRN (18:00)
[2020-11-11] MEDS ORDERED: PROMETHAZINE 25 MG/ML, 1ML IM PRN (18:00)
[2020-11-11] MEDS ORDERED: MIDAZOLAM 1 MG/ML, 2ML IV PRN (18:00)
[2020-11-11] MEDS ORDERED: DIPHENHYDRAMINE 50 MG/ML, 1ML IVPush PRN ×3 (18:00)
[2020-11-11] MEDS ORDERED: PROMETHAZINE 25 MG/ML, 1ML IVPush PRN (18:00)
[2020-11-11] MEDS ORDERED: PROMETHAZINE 12.5 MG SUPP PR PRN (18:00)
[2020-11-11] MEDS ORDERED: FENTANYL PF 100 MCG/2ML ONE ×2 (18:04→18:22)
[2020-11-11] MEDS ORDERED: OXYcodone 5 MG/5 ML ORAL.SOL UDC ONE (18:05)
[2020-11-11] MEDS: FENTANYL PF 100 MCG/2ML IV PRN ×4 (18:07→18:36)
[2020-11-11] MEDS ORDERED: HYDROmorphone 1 MG/ML, 1ML INJ ONE ×2 (18:15→19:09)
[2020-11-11] MEDS: HYDROmorphone 1 MG/ML, 1ML INJ IVPush PRN ×5 (18:20→21:21)
[2020-11-11] MEDS ORDERED: METHOCARBAMOL 1,000 MG in DEXTROSE 5% 100 ML IV ONE (18:30)
[2020-11-11] MEDS ORDERED: ENOXAPARIN 40 MG/0.4 ML SQ SCH (18:30)
[2020-11-11] MEDS ORDERED: DIAZEPAM 5 MG/ML, 2ML ONE (18:34)
[2020-11-11 19:53] VITALS: BP 155/63
[2020-11-11] MEDS: SODIUM CHLORIDE FLUSH 10ML SYR IVF SCH (21:00)
[2020-11-11] MEDS: CYCLOBENZAPRINE 10 MG TABLET PO PRN (21:21)
[2020-11-11] MEDS: OXYcodone IR 5MG TABLET PO PRN (22:46)
[2020-11-12] MEDS: CEFAZOLIN PMX 1GM/50ML 50 ML IVPB SCH ×2 (00:31→08:14)
[2020-11-12] MEDS: D5%-0.9% NACL+KCL 20MEQ 1,000 ML IV SCH ×3 (00:31→20:00)
[2020-11-12 00:40] VITALS: BP 125/83
[2020-11-12] MEDS: DIAZEPAM 2 MG TABLET PO PRN ×2 (01:05→15:25)
[2020-11-12] MEDS: OXYcodone IR 5MG TABLET PO PRN ×7 (03:31→23:38)
[2020-11-12 04:18] VITALS: BP 119/74
[2020-11-12] MEDS: ENOXAPARIN 40 MG/0.4 ML SQ SCH (05:35)
[2020-11-12] MEDS: HYDROmorphone 1 MG/ML, 1ML INJ IVPush PRN ×4 (05:35→21:36)
[2020-11-12 05:48] LABS: CALCIUM 9.4 mg/dL (8.5-10.1); CHLORIDE 102 mmol/L (98-107)
[2020-11-12 05:52] LABS: ANION GAP 7 mmol/L (5-15); CREATININE 0.84 mg/dL (0.7-1.3)
[2020-11-12 07:15] VITALS: BP 114/65
[2020-11-12] MEDS: EPLERENONE 50 MG TABLET PO SCH (08:14)
[2020-11-12] MEDS: LISINOPRIL 20 MG TABLET PO SCH (08:14)
[2020-11-12] MEDS: FAMOTIDINE 20 MG TABLET PO SCH ×2 (08:14→20:28)
[2020-11-12] MEDS: SODIUM CHLORIDE FLUSH 10ML SYR IVF SCH ×2 (08:14→20:28)
[2020-11-12] MEDS: GABAPENTIN 400 MG CAPSULE PO SCH ×3 (08:14→20:27)
[2020-11-12] MEDS: POLYETHYLENE GLYCOL 17 GM PACKET PO SCH (08:14)
[2020-11-12 13:05] VITALS: BP 119/80
[2020-11-12] MEDS: CYCLOBENZAPRINE 10 MG TABLET PO PRN ×2 (13:07→20:27)
[2020-11-12] MEDS: LIDOCAINE JELLY 2%, 30GM TP PRN (14:31)
[2020-11-12 20:20] VITALS: BP 137/82
[2020-11-13] MEDS: KETOROLAC 30 MG/1 ML IVPush SCH ×4 (01:13→19:28)
[2020-11-13] MEDS: DIAZEPAM 2 MG TABLET PO PRN (01:30)
[2020-11-13 02:11] VITALS: BP 107/63
[2020-11-13] MEDS: OXYcodone IR 5MG TABLET PO PRN ×7 (02:43→23:17)
[2020-11-13] MEDS: D5%-0.9% NACL+KCL 20MEQ 1,000 ML IV SCH ×2 (05:26→14:48)
[2020-11-13 05:35] LABS: CHLORIDE 101 mmol/L (98-107)
[2020-11-13] MEDS: ENOXAPARIN 40 MG/0.4 ML SQ SCH (05:40)
[2020-11-13] MEDS: BACLOFEN 10 MG TABLET PO PRN ×2 (05:40→17:00)
[2020-11-13 05:41] LABS: ANION GAP 7 mmol/L (5-15); CALCIUM 8.2 mg/dL (8.5-10.1); CREATININE 0.87 mg/dL (0.7-1.3)
[2020-11-13 06:55] VITALS: BP 110/70
[2020-11-13] MEDS: SODIUM CHLORIDE FLUSH 10ML SYR IVF SCH ×2 (08:41→19:59)
[2020-11-13] MEDS: FAMOTIDINE 20 MG TABLET PO SCH ×2 (08:42→19:58)
[2020-11-13] MEDS: POLYETHYLENE GLYCOL 17 GM PACKET PO SCH (08:42)
[2020-11-13] MEDS: LISINOPRIL 20 MG TABLET PO SCH (08:44)
[2020-11-13] MEDS: EPLERENONE 50 MG TABLET PO SCH (08:45)
[2020-11-13] MEDS: GABAPENTIN 400 MG CAPSULE PO SCH ×3 (08:46→19:58)
[2020-11-13] MEDS: HYDROmorphone 1 MG/ML, 1ML INJ IVPush PRN (10:34)
[2020-11-13] MEDS: DEXAMETHASONE 4 MG/ML, 1ML IVPush SCH ×3 (10:34→21:59)
[2020-11-13 13:47] VITALS: BP 120/76
[2020-11-13 20:40] VITALS: BP 119/67
[2020-11-14] MEDS: KETOROLAC 30 MG/1 ML IVPush SCH (01:15)
[2020-11-14] MEDS: BACLOFEN 10 MG TABLET PO PRN ×2 (01:15→12:59)
[2020-11-14 01:32] VITALS: BP 153/93
[2020-11-14] MEDS: D5%-0.9% NACL+KCL 20MEQ 1,000 ML IV SCH ×2 (02:00→13:12)
[2020-11-14] MEDS: OXYcodone IR 5MG TABLET PO PRN ×4 (02:31→12:59)
[2020-11-14] MEDS: DEXAMETHASONE 4 MG/ML, 1ML IVPush SCH ×2 (04:16→10:47)
[2020-11-14 05:53] LABS: ANION GAP 4 mmol/L (5-15); CALCIUM 8.8 mg/dL (8.5-10.1); CHLORIDE 105 mmol/L (98-107); CREATININE 0.79 mg/dL (0.7-1.3)
[2020-11-14] MEDS: ENOXAPARIN 40 MG/0.4 ML SQ SCH (06:01)
[2020-11-14 07:33] VITALS: BP 125/77
[2020-11-14] MEDS: POLYETHYLENE GLYCOL 17 GM PACKET PO SCH (09:01)
[2020-11-14] MEDS: GABAPENTIN 400 MG CAPSULE PO SCH (09:02)
[2020-11-14] MEDS: FAMOTIDINE 20 MG TABLET PO SCH (09:03)
[2020-11-14] MEDS: LISINOPRIL 20 MG TABLET PO SCH (09:03)
[2020-11-14] MEDS: EPLERENONE 50 MG TABLET PO SCH (09:09)
[2020-11-14] MEDS: SODIUM CHLORIDE FLUSH 10ML SYR IVF SCH (09:10)
[2020-11-14] MEDS ORDERED: GABA-827 PO (10:09)
[2020-11-14] MEDS ORDERED: CEPH500T PO (10:09)
[2020-11-14] MEDS ORDERED: BACL-19 PO (10:09)
[2020-11-14] MEDS ORDERED: OXYC10SY PO (10:09)
[2020-11-14] MEDS ORDERED: METH4TAB2 PO (10:09)
[2020-11-14] MEDS ORDERED: OXYC5TAB98 PO (10:11)
[2020-11-14] MEDS: LIDOCAINE JELLY 2%, 30GM TP PRN (13:00)
[2020-11-14 13:59] VITALS: BP 135/77
== END 2020-11-14 15:22 | disposition home health service (06) | DRG 455 ==
LOC: ORIP 07:06 → 4NE 13:25 → DCLOUNGE 11-14 15:10
PROVIDERS: ADMIT Neurological Surgery; ATTEND Neurological Surgery
PROC: 0SG3071 Fusion of Lumbosacral Joint with Autologous Tissue Substitute, Posterior Approach, Posterior Column, Open Approach (ICD-10-PCS; 2020-11-05)
PROC: 01NR0ZZ Release Sacral Nerve, Open Approach (ICD-10-PCS; 2020-11-05)
PROC: 0SB40ZZ Excision of Lumbosacral Disc, Open Approach (ICD-10-PCS; 2020-11-05)
PROC: 4A11X4G Monitoring of Peripheral Nervous Electrical Activity, Intraoperative, External Approach (ICD-10-PCS; 2020-11-05)
PROC: 0SG30A0 Fusion of Lumbosacral Joint with Interbody Fusion Device, Anterior Approach, Anterior Column, Open Approach (ICD-10-PCS; principal; 2020-11-05 10:00)
PROC: 0SG0071 Fusion of Lumbar Vertebral Joint with Autologous Tissue Substitute, Posterior Approach, Posterior Column, Open Approach (ICD-10-PCS; 2020-11-08)
PROC: 01NB0ZZ Release Lumbar Nerve, Open Approach (ICD-10-PCS; 2020-11-08)
PROC: 4A11X4G Monitoring of Peripheral Nervous Electrical Activity, Intraoperative, External Approach (ICD-10-PCS; 2020-11-08)
PROC: 8E0W0CZ Robotic Assisted Procedure of Trunk Region, Open Approach (ICD-10-PCS; 2020-11-08)
PROC: 0SB20ZZ Excision of Lumbar Vertebral Disc, Open Approach (ICD-10-PCS; 2020-11-11)
PROC: 0SG00A0 Fusion of Lumbar Vertebral Joint with Interbody Fusion Device, Anterior Approach, Anterior Column, Open Approach (ICD-10-PCS; 2020-11-11)
PROC: 0QB30ZZ Excision of Left Pelvic Bone, Open Approach (ICD-10-PCS; 2020-11-11)
PROC: 4A11X4G Monitoring of Peripheral Nervous Electrical Activity, Intraoperative, External Approach (ICD-10-PCS; 2020-11-11)
DX: M51.17 Intervertebral disc disorders with radiculopathy, lumbosacral region (principal); M48.061 Spinal stenosis, lumbar region without neurogenic claudication; M51.16 Intervertebral disc disorders with radiculopathy, lumbar region; M43.16 Spondylolisthesis, lumbar region; M43.17 Spondylolisthesis, lumbosacral region; M47.26 Other spondylosis with radiculopathy, lumbar region; Z98.1 Arthrodesis status; Z79.899 Other long term (current) drug therapy
CPT/HCPCS: 36415; 72100; 74018; J3490; S0020; 72131; 80048; 85025; 86850; 86900; 93005; 95938; 95941; C1713; C1776; G0378; J0171; J0690; J1100; J1170; J1644; J1650; J1885; J2250; J2405; J2550; J2704; J2710; J3010; J3360; J3370; C1760; C1763; C1769; J1200; J2370; J2800; J3480; J7120

== ENCOUNTER 2020-11-17 12:00 | Emergency (ER) | payer OTHER ==
[~2020-11-17] VITALS: Ht 193 cm; Wt 95.0 kg
[~2020-11-17 12:00] MED LIST changes: -BACITRACIN 50,000 UNIT ONE; +BACL-19 PO; +CEPH500T PO; +GABA-827 PO; -HEPARIN 1,000 UNITS/ML, 30ML ONE; +METH4TAB2 PO; +OXYC10SY PO; +OXYC5TAB98 PO
--- NOTE | 2020-11-17 12:34 | NUR ---
THIS IS A 40YO M W/ C/O CHEST TIGHTNESS, SOB, FATIGUE, DRY COUGH SINCE LAST NIGHT. RT LOWER LUNG PAIN W/ USE OF INCENTIVE SPIROMETER AT HOME. PT REPORTS HAD SPINAL FUSION SURGERY X6 DAYS AGO AT THIS FACILITY. PT TACHYCARDIC, OTHER VS WDL. PIV STARTED, LABS INCLUDING 1ST SET OF CULTURES DRAWN. AWAITING ED EVAL. RESTING ON GURNEY W/ CALL LIGHT IN REACH, SIDE RAILS UPX2, FAMILY AT BEDSIDE AND CONNECTED TO ALL MONITORING.
[2020-11-17] MEDS ORDERED: SODIUM CHLORIDE 0.9% 1,000ML IVBOLUS ONE (13:00)
[2020-11-17] MEDS ORDERED: SODIUM CHLORIDE FLUSH 10ML SYR IVF ONE (13:00)
--- NOTE | 2020-11-17 13:04 | NUR ---
PER DR.SULLIVAN ANTUNEZ FOR PT TO TAKE HOME PAIN MEDS. PT TOOK 10MG OXYCODONE AT THIS TIME.
--- NOTE | 2020-11-17 13:05 | NUR ---
PT REPORS USES WALKER AT HOME FOR AMBULATION S/P SX.
--- NOTE | 2020-11-17 13:15 | NUR ---
US AT BEDSIDE.
--- NOTE | 2020-11-17 13:24 | NUR ---
URINE COLLECTED AND SENT TO LAB.
[2020-11-17 13:31] LABS: BASOPHILS % (AUTO) 1 % (0-1); EOSINOPHILS % (AUTO) 1 % (1-7); LYMPHOCYTES % (AUTO) 10 % (22-44); MEAN CORPUSCULAR HGB CONC 34.6 g/dL (33.2-36.2); MEAN PLATELET VOLUME 7.1 fL (7.4-10.4); MONOCYTES % (AUTO) 7 % (2-9); NEUTROPHILS % (AUTO) 82 % (42-75); PLATELET COUNT 562 x10^3/uL (130-400); RED BLOOD COUNT 4.99 x10^6/uL (4.38-5.82); RED CELL DISTRIBUTION WIDTH 13.3 % (9.4-14.8)
[2020-11-17 13:32] LABS: MICROSCOPIC NOT IND
--- NOTE | 2020-11-17 13:32 | NUR ---
REVIEW OF CHART, ASSUME CARE OF PT AT THIS TIME.
[2020-11-17 13:43] LABS: ALANINE AMINOTRANSFERASE 55 U/L (12-78); ALBUMIN 3.6 g/dL (3.4-5.0); ANION GAP 7 mmol/L (5-15); CALCIUM 9.1 mg/dL (8.5-10.1); CHLORIDE 97 mmol/L (98-107); CREATININE 0.86 mg/dL (0.7-1.3)
[2020-11-17 13:47] LABS: ALKALINE PHOSPHATASE 101 U/L (45-117); BILIRUBIN,TOTAL 0.4 mg/dL (0.2-1.0); TOTAL PROTEIN 8.1 g/dL (6.4-8.2); TROPONIN I < 0.015 ng/mL (0.000-0.045)
--- NOTE | 2020-11-17 13:53 | NUR ---
PT TO CTA
[2020-11-17] MEDS ORDERED: OMNIPAQUE 350 MG/ML, 75ML BOTTLE ONE (14:19)
--- NOTE | 2020-11-17 14:53 | NUR ---
CTA RESULTS BACK. PT TO BE ADMITTED. ADD ON ORDER CT ABD/PELVIS. VSS/UPDATED IN COMPUTER.
--- NOTE | 2020-11-17 15:45 | NUR ---
PT IN CT.
--- NOTE | 2020-11-17 16:14 | NUR ---
PT ASKING TO AMBULATE IN [place]. PT ASSISTED WITH IV/MONITORING EQUIPMENT. PT AMBULATORY TO [facility] USING WALKER.
[2020-11-17 16:58] VITALS: BP 129/74
== END 2020-11-17 16:58 | disposition home or self-care (01) ==
LOC: ED 14:34 → UNDOADMIN 14:35 → EDIP 14:35 → ED 14:53 → UNDODISIN 17:37
DX: R06.00 Dyspnea, unspecified (principal); D72.829 Elevated white blood cell count, unspecified; R07.89 Other chest pain; M79.662 Pain in left lower leg; R10.9 Unspecified abdominal pain
CPT/HCPCS: 36415; 71275; 74177; 80053; 81003; 83605; 84145; 84484; 85025; 87040; 93005; 93971; 96360; 96361; 99285; J7030; Q9967